=== PATIENT | female | born 1960 | race Caucasian/White ===

== ENCOUNTER → 2019-07-17 | Outpatient (CLI) | payer OTHER ==
[2015-08-20 11:23] VITALS: BP 119/78
[~2019-07-17] MED LIST: CELEBREX 1100 MG/CAP PO; DOLOPHINE HCL10 MG PO; ESTRACE0.1 MG/GM VG; MEDROL 4MG DOSPA4 MG PO; NEURONTIN300 MG/CAP PO; RELION VEN0.09 MG/Ac IH; TESSALON PERLE100 M1 PO; ULTRAM50 M1 PO; VENLAFAXINE HY150 MG PO; VIBRAMYCIN100 MG PO
[2019-07-17 09:48] LABS: BASO # 0.1 (0.02-0.10); EOS # 0.4 (0.04-0.40); EOS % 5.3 % (1.0-5.0); HEMATOCRIT 42.5 % (37.0-47.0); HEMOGLOBIN 13.6 g/dL (12.5-16.0); LYMPH# 1.2 (1.50-4.00); MEAN CELL VOLUME 89 fl (78-100); MEAN CORPUSCULAR HEMOGLOBIN 29 pg (27-31); MEAN CORPUSCULAR HGB CONC 32 g/dL (33-37); MONO # 0.6 (0.20-0.80); NEU # 4.5 (1.40-6.50); PLATELET COUNT 192 K/mm3 (130-400); RED BLOOD COUNT 4.78 M/mm3 (4.10-5.30); RED CELL DISTRIBUTION WIDTH 13.4 % (11.5-14.5); WHITE BLOOD COUNT 6.8 K/mm3 (4.8-10.8)
[2019-07-17 09:49] LABS: ALBUMIN 4.1 g/dL (3.5-5.0); POTASSIUM 4.2 mmol/L (3.5-5.1)
[2019-07-17 09:50] LABS: CALCIUM 9.1 mg/dL (8.3-10.5)
[2019-07-17 09:52] LABS: TOTAL PROTEIN 6.6 g/dL (6.4-8.3)
[2019-07-17 09:53] LABS: TOTAL BILIRUBIN 0.3 mg/dL (0.2-1.2)
[2019-07-17 09:58] LABS: MAGNESIUM 2.01 mg/dL (1.60-2.60)
[2019-07-17 11:30] LABS: ERYTHROCYTE SEDIMENTATION RATE 5 mm/hr (0-30)
== END ==
LOC: LAB 09:12
PROVIDERS: Internal Medicine
DX: Z00.00 Encounter for general adult medical examination without abnormal findings (principal); M85.80 Other specified disorders of bone density and structure, unspecified site; K90.9 Intestinal malabsorption, unspecified; G25.81 Restless legs syndrome; R20.2 Paresthesia of skin

== ENCOUNTER → 2019-07-21 | Outpatient (CLI) | payer OTHER ==
[2015-08-20 11:23] VITALS: BP 119/78
== END ==
LOC: CARDREHAB 11:09 → CARDLAB 15:59
DX: G47.33 Obstructive sleep apnea (adult) (pediatric) (principal)
CPT/HCPCS: G0399

== ENCOUNTER → 2019-08-25 | Outpatient (CLI) | payer OTHER ==
[2015-08-20 11:23] VITALS: BP 119/78
== END ==
LOC: LAB 08-24 13:16
DX: Z01.818 Encounter for other preprocedural examination (principal); K62.82 Dysplasia of anus; Z11.59 Encounter for screening for other viral diseases

== ENCOUNTER → 2019-09-22 | Outpatient (CLI) | payer OTHER ==
[2015-08-20 11:23] VITALS: BP 119/78
== END ==
LOC: LAB 09-21 10:11
DX: Z01.818 Encounter for other preprocedural examination (principal); Z20.828 Contact with and (suspected) exposure to other viral communicable diseases

== ENCOUNTER → 2020-03-07 | Outpatient (CLI) | payer OTHER ==
[2015-08-20 11:23] VITALS: BP 119/78
== END ==
LOC: LAB 12:37
DX: G25.81 Restless legs syndrome (principal)

== ENCOUNTER → 2020-04-27 | Outpatient (CLI) | payer BC ==
[2015-08-20 11:23] VITALS: BP 119/78
== END ==
LOC: AMSURD 11:24
DX: Z76.89 Persons encountering health services in other specified circumstances (principal)

== ENCOUNTER → 2024-01-21 | Outpatient (CLI) | payer BC ==
[2024-01-21 11:12] LABS: BASO # 0.07 K/mm3 (0.02-0.10); EOS # 0.49 K/mm3 (0.04-0.40); EOS % 5.6 % (1.0-5.0); HEMATOCRIT 42.4 % (37.0-47.0); HEMOGLOBIN 13.8 g/dL (12.5-16.0); LYMPH# 1.26 K/mm3 (1.50-4.00); MEAN CELL VOLUME 91 fl (78-100); MEAN CORPUSCULAR HEMOGLOBIN 30 pg (27-31); MEAN CORPUSCULAR HGB CONC 33 g/dL (33-37); MEAN PLATELET VOLUME 8.9 fl (7.4-10.4); MONO # 0.64 K/mm3 (0.20-0.80); NEU # 6.33 K/mm3 (1.40-6.50); PLATELET COUNT 209 K/mm3 (130-400); RED BLOOD COUNT 4.64 M/mm3 (4.10-5.30); WHITE BLOOD COUNT 8.8 K/mm3 (4.8-10.8)
== END ==
LOC: LAB 10:55
PROVIDERS: Orthopaedic Surgery
DX: Z11.9 Encounter for screening for infectious and parasitic diseases, unspecified (principal)